=== PATIENT | female | born 1995 | race Hispanic/Latino ===

== ENCOUNTER 2018-05-05 13:29 | Emergency (ER) | payer OTHER, SELFPAY ==
[2018-05-05 15:10] LABS: Urine Blood NEGATIVE (NEG); Urine Glucose NEGATIVE (NEG); Urine Protein NEGATIVE (NEG); Urine Specific Gravity >1.030 (1.005-1.030)
[2018-05-05 16:16] LABS: Absolute Lymphocytes (CBC) 2.4 K/uL (0.7-4.9); Absolute Monocytes 0.6 K/uL (0.1-1.3); Absolute Neutrophil 5.4 K/uL (1.8-8.0); Basophils % 0.7 % (0-1.3); Eosinophils % 1.1 % (0-4.4); Hematocrit 31.1 % (36.0-45.0); Lymphocytes % 27.9 % (15.3-44.8); MCH 33.1 pg (27.0-35.0); MCV 95.9 fL (80-100); MPV 9.4 fL (7.6-11.3); Monocytes % 6.6 % (3.3-12.3); RBC Red Blood Cell Count 3.24 M/uL (3.86-4.86)
[2018-05-05 16:42] LABS: BUN Blood Urea Nitrogen 7 mg/dL (7-18); Bicarbonate 25 mmol/L (21-32); Glucose Level 81 mg/dL (74-106); HCG, Quantitative 14036 mIU/mL (1-3); Potassium 3.7 mmol/L (3.5-5.1); Sodium Level 139 mmol/L (136-145)
--- NOTE | 2018-05-05 16:53 | RAD REPORT ---
EXAM DESCRIPTION: US - OB Limited - 05/05/2018 4:37 pm CLINICAL HISTORY: with abdominal pain and cramping COMPARISON: none FINDINGS: Limited examination was performed to assess placenta, heart rate and cervix Single live intrauterine is seen. Breech presentation is noted. The amniotic fluid is withi n normal limits. Cardiac activity 149 beats per minute. The placenta is posterior. The tip lies 3.4 centimeters from the cervix. A retroplacental/subchorioni c bleed is not seen. The cervix measures 4.3 centimeters. IMPRESSION: Single live intrauterine in breech presentation A retroplacental/subchorionic bleed is not seen. The placenta is posterior. Cardiac activity 149 beats per minute The cervix is closed measuring 4.3 centimeters
[2018-05-05 17:35] LABS: Calcium Oxalate Crystals- Ur MANY (NONE SEEN); Urine Bacteria 20-50 /HPF (<20); Urine Culture Reflex Order REFLEXED; Urine RBC <5 /HPF (NONE SEEN)
--- NOTE | 2018-05-05 18:32 | ER ---
Nurse's Notes [facility] Name: Sunitha Resendez Age: 22 yrs Sex: Female : 1995 Arrival Date: 05/05/2018 Time: 13:30 Bed 23 Private MD: Diagnosis: Strain of muscle, fascia and tendon of abdomen, lower back and pelvis;Urinary tract infection, site not specified Presentation: 05/05 13:36 Presenting complaint: Patient states: was lifting a patient at work, sharp pain noted sg in back, that radiates to the stomach, and pelvis area now, pt reports she is 18 wks and two days, denies bleeding/discharge, denies urinary symptoms. Transition of care: patient was not received from another setting of care. Onset of symptoms was May 05, 2018. Risk Assessment: Do you want to hurt yourself or someone else? Patient reports no desire to harm self or others. Initial Sepsis Screen: Does the patient meet any 2 criteria? No. Patient's initial sepsis screen is negative. Does the patient have a suspected source of infection? No. Patient's initial sepsis screen is negative. Care prior to arrival: None. 13:36 Method Of Arrival: Ambulatory sg 13:36 Acuity: TINO 4 sg [employer]: 13:35 LMP 12/18/2017 sg Historical: - Allergies: 13:37 No Known Allergies; sg - Home Meds: 13:37 oral oral [Active]; sg - PMHx: 13:37 None; sg - PSHx: 13:37 None; sg - Immunization history:: Adult Immunizations up to date. - Social history:: Smoking status: Patient/guardian denies using tobacco. - Ebola Screening: : Patient negative for fever greater than or equal to 101.5 degrees Fahrenheit, and additional compatible Ebola Virus Disease symptoms Patient denies exposure to infectious person Patient denies travel to an Ebola-affected area in the 21 days before illness onset No symptoms or risks identified at this time. Screenin:09 Abuse screen: Denies threats or abuse. Nutritional screening: No deficits noted. mb3 Tuberculosis screening: No symptoms or risk factors identified. Fall Risk None identified. Assessment: 15:07 General: Appears in no apparent distress. comfortable, Behavior is calm, cooperative, mb3 appropriate for age. Pain: Complains of pain in groin, right femoral area, right inguinal area, right mid back and right low back. Neuro: No deficits noted. Level of Consciousness is awake, alert, obeys commands, Oriented to person, place, time, situation, Appropriate for age. Cardiovascular: No deficits noted. Respiratory: No deficits noted. Airway is patent Respiratory effort is even, unlabored, Respiratory pattern is regular, symmetrical, Breath sounds are clear bilaterally. GI: Abdomen is flat, Bowel sounds present X 4 quads. Abd is soft and non tender Reports nausea. : Urine is clear, Reports pain flank(s). EENT: No deficits noted. No signs and/or symptoms were reported regarding the EENT system. Derm: No signs and/or symptoms reported regarding the dermatologic system. 17:14 Reassessment: Patient and/or family updated on plan of care and expected duration. Pain mb3 level reassessed. Patient is alert, oriented x 3, equal unlabored respirations, skin warm/dry/pink. Patient denies pain at this time. Patient states feeling better. Patient states symptoms have improved. Vital Signs: 13:35 Pulse 88; Resp 17 S; Temp 98.0; Pulse Ox 100% on R/A; Weight 69.85 kg; Height 5 ft. 2 sg in. (157.48 cm); Pain 6/10; 13:37 BP 126 / 70; sg 17:13 BP 125 / 71; Pulse 80; Resp 16; Pulse Ox 100% on R/A; mb3 19:13 BP 123 / 81; Pulse 80; Resp 16; Pulse Ox 100% on R/A; mb3 13:35 Body Mass Index 28.17 (69.85 kg, 157.48 cm) sg ED Course: 13:30 Patient arrived in ED. sb2 13:37 Triage completed. sg 13:37 Arm band placed on. sg 14:46 Boston Elam, FROYLAN is Primary Nurse. mb3 15:08 Javid Alexander NP is PHCP. pm1 15:08 Gwyn Raza MD is Attending Physician. pm1 15:10 Patient has correct armband on for positive identification. Placed in gown. Bed in low mb3 position. Call light in reach. Side rails up X 1. 15:45 Inserted saline lock: 22 gauge in right forearm, using aseptic technique. Blood mb3 collected. 16:37 OB Limited In Process Unspecified. EDMS 16:38 TRANSVAG OB CERVIX ASSESSMENT In Process Unspecified. EDMS 19:13 No provider procedures requiring assistance completed. IV discontinued, intact, mb3 bleeding controlled, No redness/swelling at site. Pressure dressing applied. Administered Medications: 18:46 Drug: Rocephin 1 grams Route: IV; Rate: calculated rate; Site: right forearm; mb3 19:06 Follow up: Response: No adverse reaction; IV Status: Completed infusion; IV Intake: [id number] Intake: 19:06 IV: 50ml; Total: 50ml. mb3 Outcome: 18:31 Discharge ordered by . pm1 19:13 Discharged to home ambulatory. mb3 19:13 Condition: stable 19:13 Discharge instructions given to patient, Instructed on discharge instructions, follow up and referral plans. medication usage, Demonstrated understanding of instructions, follow-up care, medications, Prescriptions given X 1. 19:14 Patient left the ED. mb3 Signatures: Dispatcher [employer] EDMS Brant Mcgarry, RN Javid Tyler, EDGER TECHNICIAN EDGER TECHNICIAN pm1 Thao Howe sb2 Boston Elam, RN RN mb3
--- NOTE | 2018-05-05 18:32 | EDPHYS ---
Physician Documentation [facility] Name: Sunitha Resendez Age: 22 yrs Sex: Female : 1995 Arrival Date: 05/05/2018 Time: 13:30 Bed 23 Private MD: ED Physician Gwyn Raza HPI: 05/05 16:00 This 22 yrs old Female presents to ER via Ambulatory with complaints of pm1 Abdominal Pain, Back Pain. 16:00 Onset: The symptoms/episode began/occurred today. Associated signs and symptoms: pm1 Pertinent negatives: nausea, vomiting, and diarrhea, chest pain, fever, shortness of breath. The symptoms are described as crampy. Modifying factors: The symptoms are alleviated by nothing, the symptoms are aggravated by nothing. Severity of pain: in the emergency department the pain is actually worse. The patient has not experienced similar symptoms in the past. Seen by her OB 2 weeks ago. 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 Patient felt a strain immediately in her bilateral lower back but her pain moved into her right pelvic area. Patient with cramping sensation to right lower abdomen. she is 18 weeks and is concerned about the change in pain. No vaginal bleeding or discharge. [employer]: 13:35 LMP 12/18/2017 sg Historical: - Allergies: 13:37 No Known Allergies; sg - Home Meds: 13:37 oral oral [Active]; sg - PMHx: 13:37 None; sg - PSHx: 13:37 None; sg - Immunization history:: Adult Immunizations up to date. - Social history:: Smoking status: Patient/guardian denies using tobacco. - Ebola Screening: : Patient negative for fever greater than or equal to 101.5 degrees Fahrenheit, and additional compatible Ebola Virus Disease symptoms Patient denies exposure to infectious person Patient denies travel to an Ebola-affected area in the 21 days before illness onset No symptoms or risks identified at this time. ROS: 16:00 Constitutional: Negative for fever, chills, and weight loss, Eyes: Negative for injury, pm1 pain, redness, and discharge, ENT: Negative for injury, pain, and discharge, Neck: Negative for injury, pain, and swelling, Cardiovascular: Negative for chest pain, palpitations, and edema, Respiratory: Negative for shortness of breath, cough, wheezing, and pleuritic chest pain. 16:00 : Negative for injury, bleeding, discharge, and swelling, MS/Extremity: Negative for injury and deformity, Skin: Negative for injury, rash, and discoloration, Neuro: Negative for headache, weakness, numbness, tingling, and seizure. 16:00 Abdomen/GI: Positive for abdominal cramps, Negative for nausea, vomiting, and diarrhea. 16:00 Back: Positive for of the low back area, Pain. Exam: 16:00 Constitutional: This is a well developed, well nourished patient who is awake, alert, pm1 and in no acute distress. Head/Face: Normocephalic, atraumatic. Chest/axilla: Normal chest wall appearance and motion. Nontender with no deformity. No lesions are appreciated. Cardiovascular: Regular rate and rhythm with a normal S1 and S2. No gallops, murmurs, or rubs. Normal PMI, no JVD. No pulse deficits. Respiratory: Lungs have equal breath sounds bilaterally, clear to auscultation and percussion. No rales, rhonchi or wheezes noted. No increased work of breathing, no retractions or nasal flaring. 16:00 Back: No spinal tenderness. No costovertebral tenderness. Full range of motion. Skin: Warm, dry with normal turgor. Normal color with no rashes, no lesions, and no evidence of cellulitis. MS/ Extremity: Pulses equal, no cyanosis. Neurovascular intact. Full, normal range of motion. 16:00 Abdomen/GI: Inspection: gravid appearance, is noted, Bowel sounds: normal, Palpation: abdomen is soft and non-tender. 16:00 Neuro: Orientation: is normal, Motor: moves all fours. Vital Signs: 13:35 Pulse 88; Resp 17 S; Temp 98.0; Pulse Ox 100% on R/A; Weight 69.85 kg; Height 5 ft. 2 sg in. (157.48 cm); Pain 6/10; 13:37 BP 126 / 70; sg 17:13 BP 125 / 71; Pulse 80; Resp 16; Pulse Ox 100% on R/A; mb3 19:13 BP 123 / 81; Pulse 80; Resp 16; Pulse Ox 100% on R/A; mb3 13:35 Body Mass Index 28.17 (69.85 kg, 157.48 cm) sg MDM: 15:10 Patient medically screened. pm1 18:30 Data reviewed: vital signs. Data interpreted: Pulse oximetry: on room air is 100 %. pm1 Interpretation: normal. Counseling: I had a detailed discussion with the patient and/or guardian regarding: the historical points, exam findings, and any diagnostic results supporting the discharge/admit diagnosis, lab results, radiology results, the need for outpatient follow up, to return to the emergency department if symptoms worsen or persist or if there are any questions or concerns that arise at home. 05/05 15:01 Order name: Urine Dipstick--Ancillary (enter results); Complete Time: 15:12 em05/05 15:01 Order name: Urine --Ancillary (enter results); Complete Time: 15:12 em05/05 15:13 Order name: Urine Microscopic Only; Complete Time: 18:28 pm1 05/05 15:27 Order name: Quantitative Hcg; Complete Time: 17:08 pm05/05 15:27 Order name: Abo/rh Typing; Complete Time: 17:08 pm05/05 15:27 Order name: Basic Metabolic Panel; Complete Time: 17:08 pm05/05 15:27 Order name: CBC with Diff; Complete Time: 17:08 pm05/05 15:27 Order name: IV Saline Lock; Complete Time: 15:57 pm1 05/05 15:52 Order name: OB Limited; Complete Time: 17:08 EDPR 05/05 16:18 Order name: TRANSVAG OB CERVIX ASSESSMENT EDPR 05/05 17:00 Order name: ABO/RH no charge; Complete Time: 17:08 EDPR 05/05 17:37 Order name: Urine Culture EDPR 05/05 15:27 Order name: Labs collected and sent; Complete Time: 15:57 pm05/05 15:27 Order name: NPO; Complete Time: 15:57 pm1 Administered Medications: 18:46 Drug: Rocephin 1 grams Route: IV; Rate: calculated rate; Site: right forearm; mb3 19:06 Follow up: Response: No adverse reaction; IV Status: Completed infusion; IV Intake: [id number] Disposition: 05/06 07:07 Co-signature as Attending Physician, Gwyn Raza MD. rn Disposition: 05/05/18 18:31 Discharged to Home. Impression: Strain of muscle, fascia and tendon of abdomen, lower back and pelvis, Urinary tract infection, site not specified. - Condition is Stable. - Discharge Instructions: Muscle Strain, and Urinary Tract Infection. - Prescriptions for Macrobid 100 mg Oral Capsule - take 1 capsule by ORAL route every 12 hours for 10 days; 20 capsule. - Medication Reconciliation Form, Thank You Letter, Antibiotic Education form. - Follow up: Emergency Department; When: As needed; Reason: Worsening of condition. Follow up: Private Physician; When: 2 - 3 days; Reason: Recheck today's complaints, Continuance of care, Re-evaluation by your physician. - Problem is new. - Symptoms have improved. Signatures: Dispatcher [employer] EDPR Brant Mcgarry, RN Gwyn Lewis MD MD rn Marinas, Patrick, VICE PRESIDENT COMPLIANCE VICE PRESIDENT COMPLIANCE pm1 Boston Elam RN RN mb3 Corrections: (The following items were deleted from the chart) 05/05 15:52 15:28 Transvaginal Ob+US.RAD.BRZ ordered. [facility] 19:14 18:31 05/05/2018 18:31 Discharged to Home. Impression: Strain of muscle, fascia and mb3 tendon of abdomen, lower back and pelvis; Urinary tract infection, site not specified. Condition is Stable. Forms are Medication Reconciliation Form, Thank You Letter, Antibiotic Education, Prescription Opioid Use. Follow up: Emergency Department; When: As needed; Reason: Worsening of condition. Follow up: Private Physician; When: 2 - 3 days; Reason: Recheck today's complaints, Continuance of care, Re-evaluation by your physician. Problem is new. Symptoms have improved. pm1
[2018-05-05] MEDS ORDERED: CEFTRIAXONE/SWI 1gm 1 GM/10 ML SYR ONE (18:44)
--- NOTE | 2018-05-06 08:59 | RAD REPORT ---
EXAM DESCRIPTION: US - TRANSVAG OB CERVIX ASSESSMENT - 05/05/2018 4:38 pm CLINICAL HISTORY: with abdominal pain and cramping COMPARISON: None FINDINGS: Limited examination was performed to assess placenta, heart rate and cervix Single live intrauterine is seen. Breech presentation is noted. The amniotic fluid is withi n normal limits. Cardiac activity 149 beats per minute. The placenta is posterior. The tip lies 3.4 centimeters from the cervix. A retroplacental/subchorioni c bleed is not seen. The cervix measures 4.3 centimeters. IMPRESSION: Single live intrauterine in breech presentation A retroplacental/subchorionic bleed is not seen. The placenta is posterior. Cardiac activity 149 beats per minute The cervix is closed measuring 4.3 centimeters
== END 2018-05-05 19:14 | disposition home or self-care (01) ==
LOC: ER 13:29
DX: S39.011A Strain of muscle, fascia and tendon of abdomen, initial encounter (principal); N39.0 Urinary tract infection, site not specified; X58.XXXA Exposure to other specified factors, initial encounter; Y93.89 Activity, other specified; Y92.129 Unspecified place in nursing home as the place of occurrence of the external cause; Y99.0 Civilian activity done for income or pay
CPT/HCPCS: 36415; 76815; 76817; 80048; 81003; 81015; 81025; 84702; 85025; 86900; 86901; 87086; 87088; 96365; 99284; J0696